=== PATIENT | female | born 1950 | race Caucasian/White ===

== ENCOUNTER → 2019-09-23 | Outpatient (CLI) | payer MEDICARE ==
[~2019-09-23] MED LIST: COLACE100 MG PO; ONDANSETRON HCL4 M2 PO; PROAIR RESPICL90 MCG INH; SYMBICORT160 MCG/4. INH; TRAMADOL 50 MG50 MG PO; TYLENOL325 MG PO
== END ==
LOC: M.RAD 13:06
PROVIDERS: ATTEND Internal Medicine Pulmonary Disease
DX: Z12.31 Encounter for screening mammogram for malignant neoplasm of breast (principal); J98.2 Interstitial emphysema; M79.7 Fibromyalgia; J98.4 Other disorders of lung

== ENCOUNTER → 2019-10-09 | Outpatient (CLI) | payer MEDICARE | LOC: M.CT 12:53 | PROVIDERS: ATTEND Internal Medicine Pulmonary Disease | DX: J43.9 Emphysema, unspecified (principal); R91.8 Other nonspecific abnormal finding of lung field; R93.89 Abnormal findings on diagnostic imaging of other specified body structures; J98.11 Atelectasis; N13.30 Unspecified hydronephrosis; R63.4 Abnormal weight loss ==